=== PATIENT | male | born 2000 | race African-American/Black ===

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

== ENCOUNTER 2020-02-06 00:32 | Emergency (ER) | payer BC, SELFPAY ==
[2019-11-01 00:59] VITALS: BMI 23.3
[2020-02-06] VITALS (12 sets, daily range): BP systolic 116–148; BP diastolic 69–78; PULSE 50–88; RESP 15–18; TEMP 36.4; O2SAT 95–99; BMI 23.7
--- NOTE | 2020-02-06 00:36 | ED.VIS.GEN ---
History of Present Illness Chief Complaint: Suicidal Narrative: Patient called the police to bring him to the hospital he apparently wanted to kill himself and there are 2 other witnesses to confirm this per police department. He is however under quite a bit of alcohol, he claims at least 12 beers tonight. While he is in the emergency department he is denying any suicidal ideation. Initially he was somewhat directable but he was slurring his speech and kept wanting to get up and leave. Past Medical History - Allergies and Home Meds Allergies/Adverse Reactions: Allergies shrimp Adverse Reaction (Verified 10/30/19 22:20) Other Primary Care Physician: Care Physician,No Primary [Primary Care Provider] - Past Medical History: None Smoking Status: Unknown if ever smoked Review of Systems All systems negative except as indicated - He gives me a reasonable review of systems I am not sure that I can trust all of them however this is what he tells me under the state of intoxication. General: Denies: Fever Eyes: Denies: Visual changes - bilaterally Cardiovascular: Denies: Chest pain Respiratory: Denies: Dyspnea Gastrointestinal: Denies: Abdominal pain, Vomiting Musculoskeletal: Denies: Myalgias, Arthralgias Skin: Denies: Rash Neurological: Denies: Headache, Weakness Psych: Reports: Depression. Denies: Anxiety, Suicidal thoughts, Suicidal ideations - He is denying current suicidal thoughts however these are documented per Police Department pink slip Allergy: Denies: Swelling of the tongue Physical Exam General: Well nourished, - - He allows me a full physical exam Head: Normocephalic Eyes: Perrl, EOMI ENT: Moist mucous membranes Cardiovascular: Regular rate, Regular rhythm Respiratory: No distress Abdomen: Soft, Nontender Back: Nontender, Normal Inspection Extremities: Nontender, No edema Skin: Normal color Neurological: Alert, Oriented x3, - - Slight slurring of speech, slightly ataxic gait Psychological: - - Difficult exam secondary to intoxication however he has a mildly depressed affect although at times he is verbally aggressive but not physically aggressive. Diagnostic/Tx/Re-eval - Medical Decision Making Patient otherwise has an unremarkable work-up, when he is sober he will be assessed by psychiatry liaison. He will be turned over to the oncoming ED physician, he did require Geodon in the emergency department and now he is significantly improved. ED Disposition - Plan for ED Patient: Disposition: Acute Care Hospital [facility] Diagnosis: Depression, Alcohol intoxication Referrals: Care Physician,No Primary [Primary Care Provider] -
[2020-02-06] MEDS: Ziprasidone IM 20 MG/ML VIAL IM (01:00)
[2020-02-06 01:04] LABS: Absolute Neutrophil Count 1.4 X10^3/uL (2.0-7.7); Basophil# 0.02 X10^3/uL; Basophil% 0.3 % (0-1); Eosinophil# 0.14 X10^3/uL; Eosinophils% 2.4 % (0-5); Hematocrit 42.8 % (40-54); Hemoglobin 13.7 g/dL (13.0-16.5); Lymphocyte % 64.3 % (19-41); Mean Corpuscular Hgb 29.3 pg (27.0-32.0); Mean Corpuscular Volume 91.5 fL (80-94); Mean Platelet Vol. 8.9 fl (6.2-12.0); Monocyte# 0.44 X10^3/uL; Monocyte% 7.7 % (0-10); NRBC Flagged by Analyzer 0 % (0-5); Neutrophil # 1.44 X10^3/uL (2.7-7.7); Neutrophil % 25.1 % (47-70); Platelet Count 186 K/mm3 (150-450); RBC Distribution Width CV 12.8 % (11.6-14.6); RBC Distribution Width SD 42.1 fl (35.1-43.9); Red Blood Count 4.68 M/mm3 (4.6-6.2); White Blood Count 5.8 K/mm3 (4.4-11.0)
[2020-02-06 01:21] LABS: Anion Gap 5 (5-15); BUN 12 mg/dL (7-18); BUN/Creat Ratio 10.4 RATIO (10-20); Calcium,Total 8.7 mg/dL (8.5-10.1); Chloride 106 mmol/L (98-107); Creatinine, Serum 1.15 mg/dL (0.70-1.30); EST Glomerular Filtration Rate 87 mL/min (>60); Est Glom Filt Rate - Afr Amer 105 mL/min (>60); Estimated Creatinine Clearance 103.32 ml/min; Glucose 102 mg/dL (74-106); Potassium 3.5 mmol/L (3.5-5.1); Sodium Level 140 mmol/L (136-145)
--- NOTE | 2020-02-06 07:38 | NURSING ---
FAXED CHART TO [facility]
[2020-02-06 07:50] LABS: Probe Check PASS; Specimen Processing Control PASS
--- NOTE | 2020-02-06 08:10 | NURSING ---
[facility], CRISIS, TALKING TO PATIENT
--- NOTE | 2020-02-06 08:24 | EKG12_ITS ---
Test Reason : [facility] Blood Pressure : / mmHG Vent. Rate : 051 BPM Atrial Rate : 051 BPM P-R Int : 162 ms QRS Dur : 098 ms QT Int : 434 ms P-R-T Axes : 042 078 059 degrees QTc Int : 400 ms Sinus bradycardia with sinus arrhythmia Early repolarization Otherwise normal ECG Confirmed by MARK FLORES, DENISE ([id number]), associate entertainment editor SINDHU NICHOLS ([id number]) on 02/08/2020 1:12:38 PM Referred By: LUTHER Confirmed By:DENISE FLORES MD
[2020-02-06 08:49] LABS: AST(SGOT) 20 U/L (15-37); Alanine Aminotransfer ALT/SGPT 36 U/L (16-61); Albumin, Serum 4.3 g/dL (3.2-5.0); Alkaline Phosphatase 105 U/L (45-117); Bilirubin, Direct 0.14 mg/dL (0.00-0.30); Globulin 3.5 g/dL (2.2-4.2); Protein, Total 7.8 g/dL (6.4-8.2)
--- NOTE | 2020-02-06 09:54 | NURSING ---
FAXED LABS TO [facility], E[facility]K
[2020-02-06 09:57] LABS: Amphetamine Urine VISTA POSITIVE (<1000 ng/mL); Barbiturate Urine VISTA NEGATIVE (< 200 ng/mL); Benzodiazepine Urine VISTA NEGATIVE (< 200 ng/mL); Cocaine Urine VISTA NEGATIVE (< 300 ng/mL); Ecstacy Urine VISTA NEGATIVE (< 500 ng/mL); Methadone Urine VISTA NEGATIVE (< 300 ng/mL); PCP Urine VISTA NEGATIVE (< 25 ng/mL); THC Urine VISTA POSITIVE (< 50 ng/mL); Vista UDS pH Range 5
--- NOTE | 2020-02-06 11:45 | CM.ED ---
SOCIAL WORK Spoke with Nisha from Crisis. Plan is for inpatient psych hospitalization. Per Nisha, referrals have been faxed to [place] and [place] as patient is indigent. Awaiting acceptance at this time. Staff richard. Noe Bailey MSW, FISH CULTURIST
--- NOTE | 2020-02-06 17:49 | ED.RN ---
transport at bedside, report given. denies questions.
== END 2020-02-06 17:52 | disposition short-term general hospital (02) ==
PROVIDERS: Emergency Medicine; Emergency Provider Emergency Medicine
DX: F32.9 Major depressive disorder, single episode, unspecified (principal); R45.851 Suicidal ideations; F10.129 Alcohol abuse with intoxication, unspecified
CPT/HCPCS: 80048; 80076; 80307; 80320; 85025; 87635; 93005; 94799; 96372; 99284; G0480; J3486; U0003

== ENCOUNTER 2020-08-05 12:58 | Emergency (ER) | payer MEDICAID, SELFPAY ==
[2020-02-06 00:34] VITALS: BMI 23.7
[2020-08-05 12:59] VITALS: BP 145/68; PULSE 67; RESP 18; TEMP 35.9; O2SAT 100; BMI 24.0
--- NOTE | 2020-08-05 13:17 | CT_ITS ---
STUDY: CT ABDOMEN AND PELVIS WITH CONTRAST REASON FOR EXAM: Male, 20 years old. LLQ PAIN WITH UNDESCENDED LEFT TESTICLE. RADIATION DOSAGE (If Supplied By Facility): CTDIvol = ( 6.30 ) mGy, DLP = ( 348.43 ) mGycm TECHNIQUE: Transaxial images were obtained from the dome of the diaphragm to the symphysis pubis without oral contrast. IV 75ML ISOVUE 300 was administered. Sagittal and coronal images were reconstructed. Individualized dose optimization techniques were used for this CT. COMPARISON: None. FINDINGS: The visualized lung bases are unremarkable. The visualized portions of the heart are within normal limits. Normal liver. Normal gallbladder and extrahepatic biliary system. Normal spleen. Normal pancreas. Normal bilateral adrenal glands. Normal right kidney. Normal left kidney. Normal visualized stomach. Normal small intestine. Normal colon. The appendix is visualized and appears normal. Normal abdominal aorta. Normal inferior vena cava. Normal retroperitoneum. Normal urinary bladder. There is evidence of an undescended left testicle. It is within the left inguinal canal. Normal abdominal wall. Normal osseous structures. CT/Abdomen/Pelvis W IV Cont ONLY IMPRESSION: Undescended left testicle. The testicle is in the left inguinal canal. Electronically Signed: Chris Kamara MD at 14:41 EST , Service support ,
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
[2020-08-05] MEDS: Morphine 4 MG/ML Syringe IV (13:30)
[2020-08-05] MEDS: 0.9% Normal Saline 1,000 ML 1000 ML IV (13:31)
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
[2020-08-05 13:38] LABS: Absolute Lymphocyte Count 1.56 X10^3/uL (0.83-4.51); Absolute Neutrophil Count 1.1 X10^3/uL (2.0-7.7); Basophil# 0.01 X10^3/uL; Basophil% 0.3 % (0-1); Eosinophil# 0.07 X10^3/uL; Eosinophils% 2.3 % (0-5); Hematocrit 45.1 % (40-54); Hemoglobin 14.8 g/dL (13.0-16.5); Lymphocyte # 1.56 X10^3/ul (4.0); Lymphocyte % 50.6 % (19-41); Mean Corp Hgb Conc 32.8 g/dL (32-36); Mean Corpuscular Volume 88.3 fL (80-94); Mean Platelet Vol. 8.9 fl (6.2-12.0); Monocyte% 9.7 % (0-10); NRBC Flagged by Analyzer 0 % (0-5); Neutrophil # 1.14 X10^3/uL (2.7-7.7); Neutrophil % 37.1 % (47-70); Platelet Count 235 K/mm3 (150-450); RBC Distribution Width CV 11.8 % (11.6-14.6); RBC Distribution Width SD 37.9 fl (35.1-43.9); Red Blood Count 5.11 M/mm3 (4.6-6.2); White Blood Count 3.1 K/mm3 (4.4-11.0)
[2020-08-05 13:46] LABS: ALB/GLOB Ratio 1.2 RATIO (0.9-2.4); AST(SGOT) 24 U/L (15-37); Alanine Aminotransfer ALT/SGPT 37 U/L (16-61); Albumin, Serum 3.9 g/dL (3.2-5.0); Alkaline Phosphatase 116 U/L (45-117); Anion Gap 4 (5-15); BUN 15 mg/dL (7-18); BUN/Creat Ratio 12.7 RATIO (10-20); Calcium,Total 8.6 mg/dL (8.5-10.1); Chloride 107 mmol/L (98-107); Creatinine, Serum 1.18 mg/dL (0.70-1.30); EST Glomerular Filtration Rate 84 mL/min (>60); Est Glom Filt Rate - Afr Amer 101 mL/min (>60); Estimated Creatinine Clearance 99.86 ml/min; Globulin 3.3 g/dL (2.2-4.2); Glucose 78 mg/dL (74-106); Lipase 88 U/L (73-393); Potassium 3.7 mmol/L (3.5-5.1); Protein, Total 7.2 g/dL (6.4-8.2); Sodium Level 140 mmol/L (136-145)
== END 2020-08-05 15:09 | disposition home or self-care (01) ==
PROVIDERS: Emergency Provider Emergency Medicine
DX: R10.12 Left upper quadrant pain (principal); Q53.10 Unspecified undescended testicle, unilateral; Z72.0 Tobacco use
CPT/HCPCS: 74177; 80053; 83690; 85025; 96361; 96374; 99283; Q9967; A4216

== ENCOUNTER 2020-08-21 22:04 | Emergency (ER) | payer MEDICAID, SELFPAY ==
[2020-08-21 22:06] VITALS: BP 157/80; PULSE 100; RESP 18; TEMP 36.7; O2SAT 99; BMI 21.5
--- NOTE | 2020-08-21 22:32 | ED.DCSUM_ITS ---
- ER Visit Summary Date of Service: 08/21/20 Chief Complaint: Depression, suicidal thoughts History of Present Illness: The patient is a 20 M who presents with depression as well as suicidal thoughts. He had these thoughts this morning. He got into an argument with his significant other. He states that he has been crying all day. He admits to trust and abandonment issues. He states he had thoughts of wanting to harm the significant other as well as himself. He had no specific plan for either of these. He has a history of psychiatric admissions. He tells me he has no medical problems and is on no medications currently. Physical Examination: Vital signs reviewed. HEENT exam unremarkable. Heart is regular rate and rhythm without murmurs. Lungs are clear to auscultation. Abdomen is soft and nontender. Extremities reveal no edema. Skin exam normal. Neurologic exam normal. The patient does appear depressed. He is tearful on examination. He does admit to suicidal thoughts. Test Results: Laboratory studies are unremarkable aside for potassium of 3.2 and toxicology screen which shows cannabis. Glucose 111 Emergency Department Course and Treatment: The patient was given hydroxyzine. Patient was evaluated by crisis and they feel he needs inpatient psychiatric hospitalization. Patient was accepted at [facility] for psychiatry by Dr. Stacy Treatment Plan: [] Disposition: Transfer Impression: Suicidal ideation This note was generated with Akdemia dictation software. It may contain incorrect words, spelling, and punctuation that were not noted in review of the chart prior to signing ED Disposition - Plan for ED Patient: Referrals: Care Physician,No Primary [Primary Care Provider] -
--- NOTE | 2020-08-21 22:36 | ED.RN ---
PT POCKET KNIFE GIVEN TO SECURITY.
[2020-08-21 22:41] LABS: Absolute Lymphocyte Count 1.29 X10^3/uL (0.83-4.51); Absolute Neutrophil Count 5.9 X10^3/uL (2.0-7.7); Basophil# 0.01 X10^3/uL; Basophil% 0.1 % (0-1); Eosinophil# 0.01 X10^3/uL; Eosinophils% 0.1 % (0-5); Hemoglobin 15.3 g/dL (13.0-16.5); Lymphocyte # 1.29 X10^3/ul (4.0); Lymphocyte % 16.8 % (19-41); Mean Corp Hgb Conc 32.6 g/dL (32-36); Mean Corpuscular Hgb 28.9 pg (27.0-32.0); Mean Corpuscular Volume 88.7 fL (80-94); Mean Platelet Vol. 8.7 fl (6.2-12.0); Monocyte# 0.41 X10^3/uL; Monocyte% 5.3 % (0-10); NRBC Flagged by Analyzer 0 % (0-5); Neutrophil # 5.94 X10^3/uL (2.7-7.7); Neutrophil % 77.4 % (47-70); Platelet Count 231 K/mm3 (150-450); RBC Distribution Width CV 11.7 % (11.6-14.6); RBC Distribution Width SD 38.3 fl (35.1-43.9); White Blood Count 7.7 K/mm3 (4.4-11.0)
[2020-08-21 22:53] LABS: Anion Gap 8 (5-15); BUN 11 mg/dL (7-18); BUN/Creat Ratio 9.2 RATIO (10-20); Calcium,Total 9.3 mg/dL (8.5-10.1); Chloride 104 mmol/L (98-107); Creatinine, Serum 1.19 mg/dL (0.70-1.30); EST Glomerular Filtration Rate 83 mL/min (>60); Est Glom Filt Rate - Afr Amer 100 mL/min (>60); Estimated Creatinine Clearance 95.29 ml/min; Glucose 111 mg/dL (74-106); Potassium 3.2 mmol/L (3.5-5.1); Sodium Level 139 mmol/L (136-145)
[2020-08-21] MEDS: hydrOXYzine PAM 25 MG Capsule 50 MG PO (22:53)
[2020-08-21 22:58] LABS: Amphetamine Urine VISTA NEGATIVE (<1000 ng/mL); Barbiturate Urine VISTA NEGATIVE (< 200 ng/mL); Benzodiazepine Urine VISTA NEGATIVE (< 200 ng/mL); Cocaine Urine VISTA NEGATIVE (< 300 ng/mL); Ecstacy Urine VISTA NEGATIVE (< 500 ng/mL); Methadone Urine VISTA NEGATIVE (< 300 ng/mL); PCP Urine VISTA NEGATIVE (< 25 ng/mL); THC Urine VISTA POSITIVE (< 50 ng/mL); Vista UDS pH Range 6
[2020-08-21 23:13] LABS: Alcohol, Blood (Medical)-Serum < 3.0 mg/dL
[2020-08-21 23:18] VITALS: RESP 15
--- NOTE | 2020-08-21 23:24 | ED.RN ---
CALLED CRISIS ABOUT THE PATIENT AND FAXED OVER PAPERWORK TO CRISIS.
[2020-08-22 00:18] VITALS: RESP 16
[2020-08-22 01:09] VITALS: RESP 18
[2020-08-22 02:08] VITALS: BP 142/60; PULSE 80; RESP 16; O2SAT 97
--- NOTE | 2020-08-22 02:48 | ED.RN ---
FAXED OVER PATIENTS RESULTS FOR COVID
[2020-08-22 03:15] VITALS: RESP 18
== END 2020-08-22 04:18 ==
LOC: ED 22:43
PROVIDERS: Emergency Provider Emergency Medicine
DX: R45.851 Suicidal ideations (principal); F32.9 Major depressive disorder, single episode, unspecified; F12.90 Cannabis use, unspecified, uncomplicated; Z72.0 Tobacco use
CPT/HCPCS: 36415; 80048; 80307; 82077; 85025; 87426; 99285

== ENCOUNTER → 2020-09-02 11:26 | Outpatient (CLI) | payer MEDICAID, SELFPAY ==
[2020-08-21 22:06] VITALS: BMI 21.5
[2020-09-02 15:13] LABS: Absolute Lymphocyte Count 2.19 X10^3/uL (0.83-4.51); Absolute Neutrophil Count 0.9 X10^3/uL (2.0-7.7); Basophil# 0.02 X10^3/uL; Basophil% 0.6 % (0-1); Eosinophil# 0.07 X10^3/uL; Hematocrit 43.5 % (40-54); Hemoglobin 14.2 g/dL (13.0-16.5); Lymphocyte # 2.19 X10^3/ul (4.0); Lymphocyte % 63.1 % (19-41); Mean Corp Hgb Conc 32.6 g/dL (32-36); Mean Corpuscular Volume 88.8 fL (80-94); Mean Platelet Vol. 9.8 fl (6.2-12.0); Monocyte# 0.31 X10^3/uL; Monocyte% 8.9 % (0-10); NRBC Flagged by Analyzer 0 % (0-5); Neutrophil # 0.88 X10^3/uL (2.7-7.7); Neutrophil % 25.4 % (47-70); POSITIVE DIFFERENTIAL YES; Platelet Count 251 K/mm3 (150-450); RBC Distribution Width CV 11.7 % (11.6-14.6); RBC Distribution Width SD 38.1 fl (35.1-43.9); White Blood Count 3.5 K/mm3 (4.4-11.0)
[2020-09-02 15:17] LABS: Differential Indicated SCAN CRITERIA MET
[2020-09-02 15:37] LABS: ALB/GLOB Ratio 1.2 RATIO (0.9-2.4); AST(SGOT) 18 U/L (15-37); Alanine Aminotransfer ALT/SGPT 39 U/L (16-61); Alkaline Phosphatase 106 U/L (45-117); Anion Gap 4 (5-15); BUN 11 mg/dL (7-18); BUN/Creat Ratio 10.1 RATIO (10-20); Calcium,Total 8.7 mg/dL (8.5-10.1); Chloride 105 mmol/L (98-107); Creatinine, Serum 1.09 mg/dL (0.70-1.30); EST Glomerular Filtration Rate 92 mL/min (>60); Est Glom Filt Rate - Afr Amer 111 mL/min (>60); Globulin 3.4 g/dL (2.2-4.2); Glucose 76 mg/dL (74-106); Potassium 3.6 mmol/L (3.5-5.1); Protein, Total 7.4 g/dL (6.4-8.2); Sodium Level 138 mmol/L (136-145); Thyroid Stim Hormone (TSH) 1.21 uIU/mL (0.358-3.74)
[2020-09-02 15:41] LABS: Differential Comment SCANNED
[2020-09-02 16:06] LABS: HIV - WCH Non-Reactive (Nonreactive); Hepatitis B Surface Antigen Non-Reactive (Nonreactive); Hepatitis C Antibody Non-Reactive (Nonreactive)
[2020-09-02 16:20] LABS: Hemoglobin A1c 4.7 % (3.8-5.6)
[2020-09-05 16:08] LABS: Hepatitis B Core Ab Total Negative (Negative); Hepatitis Be Ab Negative (Negative)
[2020-09-05 18:04] LABS: Hepatitis B Core AB IgM Negative (Negative)
== END ==
PROVIDERS: PCP Family Medicine; Referring Provider Family Medicine; Visit Provider Family Medicine
DX: F32.9 Major depressive disorder, single episode, unspecified (principal); F19.10 Other psychoactive substance abuse, uncomplicated; R73.9 Hyperglycemia, unspecified
CPT/HCPCS: 36415; 80053; 83036; 84443; 85025; 86703; 86704; 86705; 86707; 86803; 87340

== ENCOUNTER 2021-02-14 20:50 | Emergency (ER) | payer BC, MEDICAID, SELFPAY ==
[2021-02-14 20:51] VITALS: BP 137/63; PULSE 96; RESP 18; TEMP 36.6; O2SAT 99; BMI 23.6
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
[2021-02-14] MEDS: Naproxen 500 MG Tablet PO (21:15)
--- NOTE | 2021-02-14 21:15 | RAD_ITS ---
HISTORY: pain -- right thumb EXAMINATION/TECHNIQUE: XR Fingers Min 2 Views: COMPARISON: None FINDINGS: BONES/JOINTS: No acute fracture or dislocation. Preservation of the joint spaces. SOFT TISSUES: No soft tissue swelling or gas. No radiopaque foreign body. RAD/Finger(s) Min 2 Views IMPRESSION: No acute bony abnormality. at 2224 Reported and signed by: Nuno Lopez MD Electronically Signed: Nuno Lopez MD at 22:23 EDT Tel , Service support ,
== END 2021-02-14 22:08 | disposition home or self-care (01) ==
PROVIDERS: Emergency Provider Emergency Medicine; PCP Family Medicine
DX: S63.601A Unspecified sprain of right thumb, initial encounter (principal); S50.812A Abrasion of left forearm, initial encounter; S70.212A Abrasion, left hip, initial encounter; V19.9XXA Pedal cyclist (driver) (passenger) injured in unspecified traffic accident, initial encounter; Y93.55 Activity, bike riding; Y92.9 Unspecified place or not applicable; F17.210 Nicotine dependence, cigarettes, uncomplicated
CPT/HCPCS: 73140; 99283

== ENCOUNTER 2021-03-25 17:53 | Emergency (ER) | payer BC, MEDICAID, SELFPAY ==
[2021-03-25 17:54] VITALS: BP 138/76; PULSE 101; RESP 14; TEMP 36.8; O2SAT 100; BMI 26.8
[2021-03-25 19:00] VITALS: RESP 16
[2021-03-25 20:24] LABS: Absolute Lymphocyte Count 1.85 X10^3/uL (0.83-4.51); Absolute Neutrophil Count 2.1 X10^3/uL (2.0-7.7); Basophil# 0.02 X10^3/uL; Basophil% 0.5 % (0-1); Eosinophil# 0.03 X10^3/uL; Eosinophils% 0.7 % (0-5); Hematocrit 42.9 % (40-54); Hemoglobin 13.8 g/dL (13.0-16.5); Lymphocyte # 1.85 X10^3/ul (0.83-4.51); Lymphocyte % 42.5 % (19-41); Mean Corp Hgb Conc 32.2 g/dL (32-36); Mean Corpuscular Hgb 28.6 pg (27.0-32.0); Monocyte# 0.33 X10^3/uL; Monocyte% 7.6 % (0-10); NRBC Flagged by Analyzer 0 % (0-5); Neutrophil # 2.11 X10^3/uL (2.7-7.7); Neutrophil % 48.5 % (47-70); Platelet Count 227 K/mm3 (150-450); RBC Distribution Width CV 12.4 % (11.6-14.6); RBC Distribution Width SD 40.7 fl (35.1-43.9); Red Blood Count 4.82 M/mm3 (4.6-6.2); White Blood Count 4.4 K/mm3 (4.4-11.0)
[2021-03-25 20:35] LABS: Anion Gap 6 (5-15); BUN 13 mg/dL (7-18); BUN/Creat Ratio 11.1 RATIO (10-20); Calcium,Total 9.1 mg/dL (8.5-10.1); Chloride 107 mmol/L (98-107); Creatinine, Serum 1.17 mg/dL (0.70-1.30); EST Glomerular Filtration Rate 84 mL/min (>60); Est Glom Filt Rate - Afr Amer 102 mL/min (>60); Estimated Creatinine Clearance 97.44 ml/min; Glucose 70 mg/dL (74-106); Sodium Level 141 mmol/L (136-145)
[2021-03-25 20:50] VITALS: RESP 18
[2021-03-25 20:56] LABS: Alcohol, Blood (Medical)-Serum < 3.0 mg/dL
[2021-03-25 21:00] VITALS: RESP 16
[2021-03-25 21:07] LABS: Amphetamine Urine VISTA NEGATIVE (<1000 ng/mL); Barbiturate Urine VISTA NEGATIVE (< 200 ng/mL); Benzodiazepine Urine VISTA NEGATIVE (< 200 ng/mL); Cocaine Urine VISTA NEGATIVE (< 300 ng/mL); Ecstacy Urine VISTA NEGATIVE (< 500 ng/mL); Methadone Urine VISTA NEGATIVE (< 300 ng/mL); PCP Urine VISTA NEGATIVE (< 25 ng/mL); THC Urine VISTA POSITIVE (< 50 ng/mL); Vista UDS pH Range 5
--- NOTE | 2021-03-25 21:21 | NURSING ---
CALLED CRISIS FOR PATIENT
--- NOTE | 2021-03-25 21:24 | NURSING ---
SHIRA, ERIK, CALLED. SHE WILL BE HERE 15 MIN
--- NOTE | 2021-03-25 21:45 | NURSING ---
ERIK SILVA, IS HERE
--- NOTE | 2021-03-25 21:45 | NURSING ---
ERIK SILVA, IS IN ER
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
--- NOTE | 2021-03-25 21:58 | CM.ED ---
BARNEY Note BARNEY called Shanda at [facility]. Shanda indicated they have beds. BARNEY faxed referral to [facility]. Plan: Admit to psych. Angella CARLISLE
[2021-03-25 22:00] VITALS: BP 112/74; PULSE 71; RESP 18; O2SAT 99
--- NOTE | 2021-03-25 22:04 | EKG12_ITS ---
Test Reason : [facility] Blood Pressure : / mmHG Vent. Rate : 052 BPM Atrial Rate : 052 BPM P-R Int : 150 ms QRS Dur : 094 ms QT Int : 430 ms P-R-T Axes : 042 079 052 degrees QTc Int : 399 ms Sinus bradycardia Otherwise normal ECG Confirmed by MARK FLORES, DENISE ([id number]), state editor JEANETTE PEREZ ([id number]) on 03/27/2021 1:36:24 PM Referred By: AMANDA Confirmed By:DENISE FLORES MD
[2021-03-25 23:00] VITALS: RESP 16
--- NOTE | 2021-03-25 23:09 | EDS_ITS ---
HPI HPI - Psych History of Present Illness Chief Complaint: Mental Health Informant: patient Narrative Narrative: Patient has a history of schizophrenia. He has been on medications but does not remember what they are. He has been off for at least 2 months. He has been at a [facility] rehab facility. He has a history of polypharmacy abuse but states he really has not used drugs except occasional alcohol and marijuana in the last 7 months. He is hearing voices. He says what bothers him this time is that the voices are telling him to hurt people and he does not want to. He is not suicidal. He is eating and drinking but his sleep is poor. He states he needs help and needs to be back on his medications. He has no physical complaints. [facility] Medical History Suicidal behavior Home Medications NK 08/21/20 [History Last Taken Unknown] Allergy/AdvReac Type Severity Reaction Status Date / Time Fish Containing Products Allergy Other Verified 03/25/21 17:54 Social History Smoking Status: Current every day smoker tobacco type: cigarettes ROS ROS ED Constitutional Constitutional ED: Denies chills or fever(s) Eyes Eyes: Denies blurry vision ENT ENT ED: Denies ear pain or rhinorrhea Cardiovascular Cardiovascular: Denies chest pain or palpitations Respiratory/Chest Respiratory/Chest: Denies cough or sputum Gastrointestinal Gastrointestinal: Denies diarrhea, nausea or vomiting Genitourinary Genitourinary ED: Denies dysuria or hematuria Musculoskeletal Musculoskeletal: Denies myalgias Integumentary Denies rash Neurologic Neurologic: Denies headache(s) or paresthesias Psychiatric Psychiatric: Reports other Details: See history of present illness. Endocrine Endocrinology: Denies polydipsia or polyuria Hematologic/Lymphatic Hematologic/Lymphatic: Denies easy bleeding or easy bruising Allergic/Immunologic Allergic/Immunologic ED: Denies urticaria EXAM Physical Exam Const Vital Signs: 03/26/21 01:00 03/26/21 02:00 03/26/21 03:00 Temperature Temperature Source Pulse Rate 71 Respiratory Rate 16 14 16 Blood Pressure 115/69 Blood Pressure Mean 84 Pulse Ox 99 Oxygen Delivery Method 03/26/21 04:00 03/26/21 05:00 03/26/21 06:39 Temperature 97.5 F L Temperature Source Temporal Pulse Rate 52 L Respiratory Rate 14 16 16 Blood Pressure 114/64 Blood Pressure Mean 80 Pulse Ox 99 Oxygen Delivery Method Room Air 03/26/21 08:20 03/26/21 09:31 Temperature Temperature Source Pulse Rate Respiratory Rate 16 14 Blood Pressure Blood Pressure Mean Pulse Ox Oxygen Delivery Method Positive well nourished and well developed General Appearance ED: well developed and NAD HEENT Reports moist mucous membranes normocephalic and atraumatic Eyes General Eye ED: Negative for pale conjunctiva or scleral icterus Resp normal respiratory effort and clear to auscultation bilaterally Cardio Rate: regular rate Rhythm: regular rhythm GI non-tender and non-distended Palpation: soft Back/Spine no CVA tenderness Extremity General Extremety ED: Negative for edema General Extremity: Negative for edema Neuro oriented x3 Sensorium / Orientation: alert Psych Psych Narrative: Patient is alert and oriented x3. He actually gives a good history. He does seem mildly internally stimulated. He seems just mildly paranoid but is very tolerant of exam and discussions. Skin Rashes: no rashes MDM MDM MDM Narrative Medical decision making narrative: Talk screen is consistent with his history. Alcohol is negative. Electrolytes are unremarkable. CBC is unremarkable. Covid is negative. Patient is medically cleared for psychiatric evaluation and admission if needed. Plan will be transfer to appropriate facility. Lab Data Attestation: I reviewed the patient's lab results. Labs: Laboratory Results - last 24 hr 03/25/21 03/25/21 03/25/21 20:16 20:16 20:16 WBC 4.4 RBC 4.82 Hgb 13.8 Hct 42.9 MCV 89.0 MCH 28.6 MCHC 32.2 RDW Std Deviation 40.7 RDW Coeff of Elijah 12.4 Plt Count 227 MPV 9.0 Immature Gran % (Auto) 0.200 Neut % (Auto) 48.5 Lymph % (Auto) 42.5 H Haywood % (Auto) 7.6 Eos % (Auto) 0.7 Baso % (Auto) 0.5 Absolute Neuts (auto) 2.1 Absolute Lymphs (auto) 1.85 Nucleated RBC % 0 Sodium 141 Potassium 3.0 L Chloride 107 Carbon Dioxide 28.0 Anion Gap 6 BUN 13 Creatinine 1.17 Estim Creat Clear Calc 97.44 Est GFR (MDRD) Af Amer 102 Est GFR (MDRD) Non-Af 84 BUN/Creatinine Ratio 11.1 Glucose 70 L Calcium 9.1 Urine Opiates Screen Urine Methadone Screen Ur Barbiturates Screen Ur Phencyclidine Scrn Ur Amphetamines Screen U Methamphetamin-MDMA U Benzodiazepines Scrn Urine Cocaine Screen U Cannabinoids Screen Ur Drug Screen Comment Ethyl Alcohol < 3.0 03/25/21 20:45 WBC RBC Hgb Hct MCV MCH MCHC RDW Std Deviation RDW Coeff of Elijah Plt Count MPV Immature Gran % (Auto) Neut % (Auto) Lymph % (Auto) Haywood % (Auto) Eos % (Auto) Baso % (Auto) Absolute Neuts (auto) Absolute Lymphs (auto) Nucleated RBC % Sodium Potassium Chloride Carbon Dioxide Anion Gap BUN Creatinine Estim Creat Clear Calc Est GFR (MDRD) Af Amer Est GFR (MDRD) Non-Af BUN/Creatinine Ratio Glucose Calcium Urine Opiates Screen NEGATIVE Urine Methadone Screen NEGATIVE Ur Barbiturates Screen NEGATIVE Ur Phencyclidine Scrn NEGATIVE Ur Amphetamines Screen NEGATIVE U Methamphetamin-MDMA NEGATIVE U Benzodiazepines Scrn NEGATIVE Urine Cocaine Screen NEGATIVE U Cannabinoids Screen POSITIVE H Ur Drug Screen Comment Ethyl Alcohol Discharge Plan Triage Chief Complaint: Mental Health ED Provider: Bakari Norris Dx/Rx/DC Orders Clinical Impression: Acute exacerbation of chronic schizophrenia, Auditory hallucination Prescriptions: No Action NK RF: 0 Primary Care Provider: Susana Ho Referrals: Susana Ho MD [Primary Care Provider] - Disposition Disposition: Psychiatric Hospital or Unit Discharge Location: [facility] Discharge Date/Time: 03/26/21 10:16
--- NOTE | 2021-03-25 23:23 | CM.ED ---
BARNEY Note BARNEY called Shanda at [facility]. She indicated she has other cases to review and no determination has been made. 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 Plan: Inpatient psych Angella CARLISLE
[2021-03-26] VITALS (9 sets, daily range): BP systolic 114–115; BP diastolic 64–69; PULSE 52–71; RESP 14–18; TEMP 36.4; O2SAT 99
[2021-03-26] MEDS: LORazepam 1 MG Tablet PO (01:22)
--- NOTE | 2021-03-26 04:28 | ED.RN ---
GENERATIONS DECLINED THE PATIENT
== END 2021-03-26 10:16 ==
PROVIDERS: Emergency Provider Emergency Medicine; PCP Family Medicine
DX: F20.9 Schizophrenia, unspecified (principal); F12.90 Cannabis use, unspecified, uncomplicated; F17.210 Nicotine dependence, cigarettes, uncomplicated
CPT/HCPCS: 80048; 80307; 82077; 85025; 87426; 93005; 99283

== ENCOUNTER 2021-03-31 00:51 | Emergency (ER) | payer BC, MEDICAID, SELFPAY ==
[2021-03-31 00:52] VITALS: BP 117/105; PULSE 78; RESP 18; TEMP 36.6; O2SAT 98; BMI 22.9
[2021-03-31] MEDS: OLANZapine 5 MG/TAB TAB.RAPDIS PO (01:22)
--- NOTE | 2021-03-31 01:25 | EDS_ITS ---
HPI History of Present Illness Chief Complaint: Med Refill Informant: patient Onset/Context/Timing Onset: Today Current Severity: Mild Maximum Severity: Mild Narrative Narrative: 20-year-old male has a history of schizophrenia. Recently was hospitalized in a psychiatric facility. He has his prescriptions but is not getting them filled until later today. He was just hoping to get his Zyprexa dose. He denies being homicidal or suicidal. Prior similar symptoms: Yes Recent Illness/Hospitalization: Yes PFSH PFSH Medical History Suicidal behavior Home Medications NK 08/21/20 [History Last Taken Unknown] Allergy/AdvReac Type Severity Reaction Status Date / Time Fish Containing Products Allergy Other Verified 03/25/21 17:54 Social History Smoking Status: Current every day smoker tobacco type: cigarettes ROS ROS ED ROS Narrative Denies recent illness. Review of Systems ROS Unobtainable: Denies due to encephalopathy Constitutional Constitutional ED: Denies chills or fever(s) Eyes Eyes: Denies change in vision ENT ENT ED: Denies ear pain or sore throat Cardiovascular Cardiovascular: Denies chest pain Respiratory/Chest Respiratory/Chest: Denies cough or dyspnea Gastrointestinal Gastrointestinal: Denies abdominal pain, nausea or vomiting Genitourinary Genitourinary ED: Denies dysuria or hematuria Musculoskeletal Musculoskeletal: Denies myalgias Integumentary Denies rash Neurologic Neurologic: Denies headache(s) Psychiatric Psychiatric: Reports anxiety; Denies depression Endocrine Endocrinology: Denies polyuria Allergic/Immunologic Allergic/Immunologic ED: Denies urticaria EXAM Physical Exam Narrative Exam Narrative: Well-appearing 20-year-old. Vital signs stable afebrile. No distress. Mildly anxious. Exam otherwise normal. He makes good eye contact. He is cooperative. He is calm and interactive. Const Vital Signs: 03/31/21 00:52 Temperature 98 F Temperature Source Temporal Pulse Rate 78 Respiratory Rate 18 Blood Pressure 117/105 H Blood Pressure Mean 109 Pulse Ox 98 Oxygen Delivery Method Room Air Positive well nourished and well developed; Negative for obese, cachectic, contractures or unkempt General Appearance ED: well developed and NAD; Negative for unkempt, cachectic or contractures Nutritional Appearance: Negative for cachectic or obese HEENT Reports moist mucous membranes Negative for trauma or tenderness Eyes PERRL and EOMs intact bilaterally Neck no lymphadenopathy, supple and no JVD General: Negative for tenderness Chest Wall inspection of chest normal and palpation of chest normal Resp normal respiratory effort and clear to auscultation bilaterally Cardio regular rate, regular rhythm, S1 normal heart sound, S2 normal heart sound and no murmurs GI normal to inspection, nondistended, normoactive bowel sounds, non-tender, non- distended and no masses Auscultation: normoactive bowel sounds Palpation: soft; Negative for tender, guarding or rebound tenderness present Back/Spine no CVA tenderness Extremity normal to inspection General Extremety ED: Negative for edema or tenderness General Extremity: Negative for edema Neuro oriented x3 and CN's II-XII intact bilaterally Sensorium / Orientation: alert; Negative for orientation impaired, lethargic or stuporous Motor Exam: strength 5/5 throughout; Negative for general weakness Psych mental status grossly normal Appearance: Negative for unkempt Attitude: No agitated Mood & Affect: anxious; Negative for depressed or tearful Skin no rashes or lesions noted and no wounds MDM MDM MDM Narrative Medical decision making narrative: Patient with a history of schizophrenia. Just needs a dose of his Zyprexa. He has a prescription so get filled tomorrow. Otherwise he is very stable. His exam is unremarkable. He can be discharged home. He is given a snack of something to eat and will be discharged. Discharge Plan Triage Chief Complaint: Med Refill ED Provider: Kev Copeland Dx/Rx/DC Orders Clinical Impression: Anxiety, Schizophrenia, chronic condition Instructions: Understanding Schizophrenia Prescriptions: No Action NK RF: 0 Primary Care Provider: Susana Ho Referrals: Susana Ho MD [Primary Care Provider] - As Needed Activity Restrictions/Additional Instructions: Get your prescriptions filled tomorrow. Follow-up with your primary care physician and psychiatrist as needed. Disposition Disposition: Home, Self Care
== END 2021-03-31 01:42 | disposition home or self-care (01) ==
PROVIDERS: Emergency Provider Emergency Medicine; PCP Family Medicine
DX: F20.9 Schizophrenia, unspecified (principal); F41.9 Anxiety disorder, unspecified; F17.210 Nicotine dependence, cigarettes, uncomplicated
CPT/HCPCS: 99282

== ENCOUNTER 2021-07-29 07:02 | Emergency (ER) | payer BC, MEDICAID, SELFPAY ==
[2021-07-29 07:03] VITALS: BP 130/74; PULSE 65; RESP 14; TEMP 36.6; O2SAT 100; BMI 23.3
[2021-07-29] MEDS: Fluorescein 1 MG STRIP 1 STRIP RIGHT EYE (07:25)
[2021-07-29] MEDS: Tetracaine 0.5% Ophthalmic Bottle 1 DRP RIGHT EYE (07:25)
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
[2021-07-29] MEDS: Erythromycin Base 1 OPTH.TUBE 1 APPLIC RIGHT EYE (07:49)
== END 2021-07-29 07:50 | disposition home or self-care (01) ==
LOC: ED 07:44
PROVIDERS: Emergency Provider Student in an Organized Health Care Education/Training Program; PCP Family Medicine; Visit Provider Student in an Organized Health Care Education/Training Program
DX: S05.01XA Injury of conjunctiva and corneal abrasion without foreign body, right eye, initial encounter (principal); F17.210 Nicotine dependence, cigarettes, uncomplicated; X58.XXXA Exposure to other specified factors, initial encounter
CPT/HCPCS: 99282

== ENCOUNTER 2021-08-07 15:58 | Emergency (ER) | payer BC, MEDICAID, SELFPAY ==
[2021-08-07 15:59] VITALS: BP 156/70; PULSE 69; RESP 14; TEMP 36.8; O2SAT 100; BMI 23.3
--- NOTE | 2021-08-07 17:34 | EX.ED.DYSGE1 ---
HPI History of Present Illness Chief Complaint: Chest Other Informant: patient Onset/Context/Timing Onset: Weeks (3 weeks) Context: Gradual Onset Timing: Waxes and wanes Narrative Narrative: Patient presents secondary to lump under her right nipple for the past 3 weeks. He states he feels like it is enlarging in size and has been painful. No erythema or skin changes. No drainage. PFSH PFSH Medical History Suicidal behavior Home Medications erythromycin 1 applic RIGHT EYE Q6H 5 Days #3.5 g 07/29/21 [Rx Last Taken Unknown] ketorolac 2 drp RIGHT EYE Q8H PRN #5 ml 07/29/21 [Rx Last Taken Unknown] doxycycline monohydrate 100 mg PO BID #20 cap 08/07/21 [Rx Last Taken Unknown] Allergy/AdvReac Type Severity Reaction Status Date / Time Fish Containing Products Allergy Other Verified 08/07/21 16:00 Social History Smoking Status: Current every day smoker tobacco type: cigarettes ROS ROS ED Constitutional Constitutional ED: Denies chills or fever(s) Eyes Eyes: Denies blurry vision ENT ENT ED: Denies rhinorrhea or sore throat Cardiovascular Cardiovascular: Reports chest pain Respiratory/Chest Respiratory/Chest: Denies cough or dyspnea Gastrointestinal Gastrointestinal: Denies abdominal pain Integumentary Denies abscess or rash Neurologic Neurologic: Denies headache(s) Allergic/Immunologic Allergic/Immunologic ED: Denies urticaria EXAM Physical Exam Const Vital Signs: 08/07/21 15:59 Temperature 98.3 F Temperature Source Temporal Pulse Rate 69 Respiratory Rate 14 Blood Pressure 156/70 H Blood Pressure Mean 98 Pulse Ox 100 Oxygen Delivery Method Room Air Positive well nourished and well developed General Appearance ED: well developed HEENT Reports moist mucous membranes Eyes PERRL and EOMs intact bilaterally Neck supple Chest Wall Chest Narrative: Firm 3 mm diameter lesion noted just beneath the right nipple. No overlying skin change. Resp normal respiratory effort and clear to auscultation bilaterally Cardio regular rate and regular rhythm GI normal to inspection, nondistended, normoactive bowel sounds and non-tender Palpation: soft Extremity normal to inspection Neuro oriented x3 Sensorium / Orientation: alert Psych mental status grossly normal MDM MDM Treatment and Re-Evaluation Comments:: Bedside ultrasound was performed. I do not see any evidence of abscess. My suspicion is this is a small blocked oil gland or sebaceous cyst. In order to ensure no infection I will cover him with a course of antibiotics. I recommended warm compresses to the area 2-3 times a day. If symptoms do not improve with this treatment, he is to follow-up with his primary care physician for a formal ultrasound. Discharge Plan Triage Chief Complaint: Chest Other ED Provider: Mariangel Ramachandran Dx/Rx/DC Orders Clinical Impression: Sebaceous cyst Instructions: ED Epidermoid Cyst, No Infection Prescriptions: New doxycycline monohydrate 100 MG capsule 100 mg PO BID Qty: 20 RF: 0 No Action erythromycin 5 mg/gram (0.5 %) ointment 1 applic RIGHT EYE Q6H 5 Days Qty: 3.5 RF: 0 ketorolac 0.5 % drops 2 drp RIGHT EYE Q8H PRN (Reason: pain) Qty: 5 RF: 0 Primary Care Provider: Susana Ho Referrals: Susana Ho MD [Primary Care Provider] - 10-14 Days if not better Disposition Disposition: Home, Self Care
[2021-08-07] MEDS: Doxycycline 100 MG CAPSULE PO (17:44)
== END 2021-08-07 17:46 | disposition home or self-care (01) ==
LOC: ED 17:40
PROVIDERS: Emergency Provider Emergency Medicine; PCP Family Medicine; Visit Provider Emergency Medicine
DX: L72.3 Sebaceous cyst (principal); F17.210 Nicotine dependence, cigarettes, uncomplicated
CPT/HCPCS: 99283

== ENCOUNTER 2021-09-18 16:18 | Outpatient (CLI) | payer BC, MEDICAID, SELFPAY ==
--- NOTE | 2021-09-18 16:23 | RAD_ITS ---
STUDY: X-RAY - RIGHT HAND, ATTENTION FIRST FINGER REASON FOR EXAM: Male, 21 years old. Pain. History of remote fall. Persistent pain at the base of the thumb. TECHNIQUE: 3 view(s) of the finger were obtained. COMPARISON: None. FINDINGS: Normal metacarpal head. Normal metacarpophalangeal joint. Normal proximal phalanx. Normal distal phalanx. Normal interphalangeal joint. The soft tissues appear grossly normal. RAD/Finger(s) Min 2 Views IMPRESSION: No fracture or dislocation. Electronically Signed: Primitivo Martinez DO at 23:53 EST ,
== END 2021-09-18 23:59 | disposition home or self-care (01) ==
PROVIDERS: PCP Family Medicine; Referring Provider Family Medicine; Visit Provider Family Medicine
DX: M79.644 Pain in right finger(s) (principal)
CPT/HCPCS: 73140

== ENCOUNTER 2024-01-20 22:40 | Emergency (ER) | payer MEDICAID, SELFPAY ==
[2024-01-20 22:41] VITALS: BP 132/87; PULSE 78; RESP 18; TEMP 36.3; O2SAT 98; BMI 21.9
--- NOTE | 2024-01-20 23:07 | EX.ED.DYSGE1 ---
HPI History of Present Illness Chief Complaint: Rash Informant: patient Onset/Context/Timing Onset: Weeks (2) Context: Gradual Onset Timing: Continuous Quality: Itching, burning, painful Location: Face, neck, arms, chest, abdomen, and ankles Worsened by: Itching, palpation Relieved by: Nothing Narrative Narrative: Patient presents with a rash that has been getting worse over the past 2 weeks. Patient states it is gradually gotten worse. Patient states he thinks he came in contact with something that he is allergic to while he was at work. Patient states it started over his frontal scalp area. Patient states that he scratched the area and it then spread to his face, arms, neck, chest, and abdomen. Patient states the rash is pruritic and painful. Patient describes it as burning. Patient states it is worse with itching and with palpation. Patient is nothing seems to help with it. Patient states he has used multiple [id number] creams without any improvement. [facility] Medical History Schizophrenia Bipolar 2 disorder Suicidal behavior Home Medications ?Medication ?Instructions ?Recorded ?Last Taken ?Type erythromycin 5 mg/gram (0.5 %) eye 1 applic RIGHT EYE Q6H 5 days #3.5 07/29/21 Unknown Rx ointment grams ketorolac 0.5 % eye drops 2 drp RIGHT EYE Q8H PRN pain #5 mL 07/29/21 Unknown Rx doxycycline monohydrate 100 mg 100 mg PO BID #20 caps 08/07/21 Unknown Rx capsule prednisone 20 mg tablet 60 mg (3 x 20 mg) PO DAILY #15 01/20/24 Unknown Rx TABLETS Allergy/AdvReac Type Severity Reaction Status Date / Time Fish Containing Products Allergy Other Verified 01/20/24 22:43 Surgical History no surgical history no surgical history Social History Smoking Status: Former smoker ROS ROS ED Constitutional Constitutional ED: Denies chills or fever(s) Eyes Eyes: Denies blurry vision or change in vision ENT ENT ED: Denies rhinorrhea or sore throat Cardiovascular Cardiovascular: Denies chest pain or palpitations Respiratory/Chest Respiratory/Chest: Denies cough or dyspnea Gastrointestinal Gastrointestinal: Denies nausea or vomiting Genitourinary Genitourinary ED: Denies dysuria or hematuria Musculoskeletal Musculoskeletal: Denies back pain or neck pain Integumentary Reports rash; Denies abscess Neurologic Neurologic: Denies headache(s) or weakness Allergic/Immunologic Allergic/Immunologic ED: Denies mouth swelling or urticaria EXAM Physical Exam Const Vital Signs: 01/20/24 22:41 Temperature 97.3 F L Temperature Source Temporal Pulse Rate 78 Respiratory Rate 18 Blood Pressure 132/87 H Blood Pressure Mean 102 Pulse Ox 98 Oxygen Delivery Method Room Air Positive well nourished and well developed General Appearance ED: well developed and NAD HEENT Reports moist mucous membranes Neck supple and no JVD Extremity normal to inspection General Extremety ED: Negative for edema General Extremity: Negative for edema Neuro oriented x3, CN's II-XII intact bilaterally and no sensory deficits noted Sensorium / Orientation: alert Motor Exam: strength 5/5 throughout Psych mental status grossly normal Skin Skin Narrative: There is a patchy erythematous macular rash over the face, neck, chest, abdomen, arms, and axilla. There are no vesicles or pustules noted. There are no petechia noted. There is no involvement of the mucous membranes. There is no sloughing of the skin. There is no involvement of the palms or soles. MDM MDM MDM Narrative Medical decision making narrative: Patient was advised that this is consistent with allergic dermatitis. Patient was given a dose of prednisone here. Patient was given a prescription for prednisone. Patient was instructed to use Benadryl, Claritin, or Zyrtec as needed for any itching. Patient was given a note for work. Patient was instructed to follow-up with his primary care physician in 3 to 5 days for further evaluation. Patient understood and was agreeable with the plan. All questions were answered. Discharge Plan Triage Chief Complaint: Rash ED Provider: Ronald Figueroa Dx/Rx/DC Orders Clinical Impression: Allergic dermatitis, Elevated blood pressure reading Instructions: ED Contact Dermatitis Prescriptions: New prednisone 20 mg tablet 60 mg PO DAILY Qty: 15 0RF No Action erythromycin 5 mg/gram (0.5 %) ointment 1 applic RIGHT EYE Q6H 5 Days Qty: 3.5 0RF ketorolac 0.5 % drops 2 drp RIGHT EYE Q8H PRN (Reason: pain) Qty: 5 0RF Rx Instructions: begin 24 hours prior to surgery doxycycline monohydrate 100 MG capsule 100 mg PO BID Qty: 20 0RF Stand Alone Forms: ED Work / School Excuse Primary Care Provider: Susana Ho Referrals: Susana Ho MD [Primary Care Provider] - 3-5 Days Print Language: Ukrainian Disposition Disposition: Home, Self Care
[2024-01-20] MEDS: predniSONE 20 MG Tablet 60 MG PO (23:50)
[2024-01-20 23:56] VITALS: BP 130/80; PULSE 70; RESP 18; TEMP 36.3; O2SAT 98
== END 2024-01-20 23:57 | disposition home or self-care (01) ==
PROVIDERS: Emergency Provider Emergency Medicine; PCP Family Medicine; Visit Provider Emergency Medicine
DX: L23.9 Allergic contact dermatitis, unspecified cause (principal); Z87.891 Personal history of nicotine dependence; R03.0 Elevated blood-pressure reading, without diagnosis of hypertension
CPT/HCPCS: 99282

== ENCOUNTER → 2024-03-23 | Outpatient (CLI) | payer MEDICAID, SELFPAY ==
[2024-03-23 10:43] LABS: Absolute Lymphocyte Count 2.97 X10^3/uL (0.83-4.51); Absolute Neutrophil Count 1.1 X10^3/uL (2.0-7.7); Basophil# 0.02 X10^3/uL; Basophil% 0.4 % (0-1); Eosinophil# 0.11 X10^3/uL; Eosinophils% 2.4 % (0-5); Hematocrit 42.4 % (40-54); Hemoglobin 13.6 g/dL (13.0-16.5); Lymphocyte # 2.97 X10^3/ul (0.83-4.51); Lymphocyte % 64.4 % (19-41); Mean Corp Hgb Conc 32.1 g/dL (32-36); Mean Corpuscular Hgb 28.2 pg (27.0-32.0); Mean Corpuscular Volume 87.8 fL (80-94); Mean Platelet Vol. 9.1 fl (6.2-12.0); Monocyte# 0.39 X10^3/uL; Monocyte% 8.5 % (0-10); NRBC Flagged by Analyzer 0 % (0-5); Neutrophil # 1.11 X10^3/uL (2.7-7.7); Neutrophil % 24.1 % (47-70); Platelet Count 215 K/mm3 (150-450); RBC Distribution Width CV 12.3 % (11.6-14.6); RBC Distribution Width SD 40.1 fl (35.1-43.9); Red Blood Count 4.83 M/mm3 (4.6-6.2); White Blood Count 4.6 K/mm3 (4.4-11.0)
[2024-03-23 11:21] LABS: Vitamin D,25 Hydroxy 35.6 ng/mL
[2024-03-23 11:27] LABS: ALB/GLOB Ratio 1.1 RATIO (0.9-2.4); AST(SGOT) 182 U/L (15-37); Alanine Aminotransfer ALT/SGPT 87 U/L (16-61); Alkaline Phosphatase 105 U/L (45-117); Anion Gap 7 (5-15); BUN 11 mg/dL (7-18); BUN/Creat Ratio 10.9 RATIO (10-20); Calcium,Total 9.2 mg/dL (8.5-10.1); Chloride 104 mmol/L (98-107); Cholesterol 136 mg/dL (200); Creatinine, Serum 1.01 mg/dL (0.70-1.30); EST Glomerular Filtration Rate 97 mL/min (>60); Est Glom Filt Rate - Afr Amer 117 mL/min (>60); Globulin 3.6 g/dL (2.2-4.2); Glucose 93 mg/dL (74-106); High Density Lipoprotein 88 mg/dL; Potassium 3.4 mmol/L (3.5-5.1); Protein, Total 7.6 g/dL (6.4-8.2); Sodium Level 140 mmol/L (136-145); Triglycerides 60 mg/dL; Very Low Density Lipoprotein 12 mg/dL (5-40)
[2024-03-23 11:36] LABS: Hemoglobin A1c 4.5 % (3.8-5.6)
== END | disposition home or self-care (01) ==
LOC: PAVLAB 10:17
PROVIDERS: PCP Family Medicine; Referring Provider Registered Nurse; Visit Provider Registered Nurse
DX: Z79.899 Other long term (current) drug therapy (principal)
CPT/HCPCS: 36415; 80053; 80061; 82306; 83036; 84443; 85025

== ENCOUNTER 2024-08-11 20:55 | Emergency (ER) | payer MEDICAID, SELFPAY ==
[2024-08-11 20:56] VITALS: BP 140/112; PULSE 115; RESP 20; TEMP 36.4; O2SAT 99; BMI 22.6
[2024-08-11 21:55] VITALS: BP 108/78; PULSE 70
[2024-08-11 22:07] LABS: Absolute Lymphocyte Count 4.86 X10^3/uL (0.83-4.51); Absolute Neutrophil Count 2.9 X10^3/uL (2.0-7.7); Basophil# 0.03 X10^3/uL; Basophil% 0.4 % (0-1); Eosinophil# 0.07 X10^3/uL; Eosinophils% 0.8 % (0-5); Hematocrit 43.5 % (40-54); Hemoglobin 14.5 g/dL (13.0-16.5); Lymphocyte # 4.86 X10^3/ul (0.83-4.51); Lymphocyte % 58.1 % (19-41); Mean Corp Hgb Conc 33.3 g/dL (32-36); Mean Corpuscular Hgb 28.5 pg (27.0-32.0); Mean Corpuscular Volume 85.6 fL (80-94); Mean Platelet Vol. 9.1 fl (6.2-12.0); Monocyte# 0.52 X10^3/uL; Monocyte% 6.2 % (0-10); NRBC Flagged by Analyzer 0 % (0-5); Neutrophil # 2.88 X10^3/uL (2.7-7.7); Neutrophil % 34.4 % (47-70); Platelet Count 263 K/mm3 (150-450); RBC Distribution Width CV 12.4 % (11.6-14.6); RBC Distribution Width SD 38.8 fl (35.1-43.9); Red Blood Count 5.08 M/mm3 (4.6-6.2); White Blood Count 8.4 K/mm3 (4.4-11.0)
[2024-08-11 22:18] LABS: Amphetamine Urine NEGATIVE (<1000 ng/mL); Barbiturate Urine VISTA NEGATIVE (< 200 ng/mL); Benzodiazepine Urine VISTA NEGATIVE (< 200 ng/mL); Cocaine Urine VISTA NEGATIVE (< 300 ng/mL); Ecstacy Urine VISTA NEGATIVE (< 500 ng/mL); Methadone Urine VISTA NEGATIVE (< 300 ng/mL); PCP Urine VISTA NEGATIVE (< 25 ng/mL); THC Urine VISTA POSITIVE (< 50 ng/mL); Vista UDS pH Range 5
[2024-08-11 22:25] LABS: Anion Gap 5 (5-15); BUN 10 mg/dL (7-18); BUN/Creat Ratio 8.2 RATIO (10-20); Calcium,Total 9.4 mg/dL (8.5-10.1); Chloride 108 mmol/L (98-107); Creatinine, Serum 1.22 mg/dL (0.70-1.30); EST Glomerular Filtration Rate 78 mL/min (>60); Est Glom Filt Rate - Afr Amer 94 mL/min (>60); Estimated Creatinine Clearance 94.29 ml/min; Glucose 89 mg/dL (74-106); Potassium 3.4 mmol/L (3.5-5.1); Sodium Level 140 mmol/L (136-145)
[2024-08-11] MEDS: hydrOXYzine PAM 25 MG Capsule 50 MG PO (22:33)
[2024-08-11] MEDS: Haloperidol 5 MG Tablet PO (23:14)
--- NOTE | 2024-08-11 23:59 | EDS_ITS ---
HPI History of Present Illness Chief Complaint: Suicidal Informant: patient and family Narrative Narrative: Patient is a 24-year-old male with past medical history of schizophrenia and bipolar disorder. He states that he has struggled with depression and thoughts of suicide for multiple years. He reports that he will typically cut himself and attempt to relieve stress and calm himself down. He denies any recent stressor but states that he feels that he does not have any reason to live and is thinking of hurting himself. He does admit to previous admission secondary to suicidal thoughts roughly 3 to 4 years ago. Patient denies any ingestion at this time in order to attempt harming himself. He denies any true plan at this time but states that he would just go buy a gun and use that as an means to perform self-harm. Therefore with his worsening depression and thoughts of suicidal ideation he was brought in for evaluation [facility] Medical History Schizophrenia Bipolar 2 disorder Suicidal behavior Home Medications ?Medication ?Instructions ?Recorded ?Last Taken ?Type olanzapine 20 mg tablet 20 mg PO QHS 01/20/24 Unknown History ondansetron HCl 4 mg tablet 4 mg PO Q8H PRN nausea and 06/23/24 Unknown Rx vomiting #7 tabs Allergy/AdvReac Type Severity Reaction Status Date / Time Fish Containing Products Allergy Other Verified 08/11/24 20:56 Social History (Updated 08/11/24 @ 21:55 by Celestina Brown) household members: family housing: apartment Smoking Status: Former smoker ROS ROS ED Constitutional Constitutional ED: Denies chills or fever(s) ENT ENT ED: Denies sore throat Cardiovascular Cardiovascular: Denies chest pain Respiratory/Chest Respiratory/Chest: Denies cough or dyspnea Gastrointestinal Gastrointestinal: Denies abdominal pain, diarrhea, nausea or vomiting Genitourinary Genitourinary ED: Denies dysuria Musculoskeletal Musculoskeletal: Denies myalgias Integumentary Denies rash Neurologic Neurologic: Denies headache(s) Psychiatric Psychiatric: Reports anxiety, depression, suicidal ideation and suicidal thoughts Hematologic/Lymphatic Hematologic/Lymphatic: Denies easy bleeding or easy bruising EXAM Physical Exam Const Vital Signs: 08/11/24 20:56 08/11/24 21:55 Temperature 97.5 F L Temperature Source Temporal Pulse Rate 115 H 70 Respiratory Rate 20 H Blood Pressure 140/112 H 108/78 Blood Pressure Mean 121 88 Pulse Ox 99 Oxygen Delivery Method Room Air Positive well nourished and well developed General Appearance ED: well developed; Negative for pallor HEENT HEENT Narrative: Normocephalic atraumatic Eyes PERRL and EOMs intact bilaterally General Eye ED: Negative for scleral icterus Neck supple Neck Narrative: No nuchal rigidity or meningeal signs Chest Wall palpation of chest normal Resp normal respiratory effort and clear to auscultation bilaterally Cardio regular rate and regular rhythm GI normal to inspection, nondistended, normoactive bowel sounds, non-tender, non- distended and no masses Auscultation: normoactive bowel sounds Palpation: soft Extremity normal to inspection Neuro oriented x3, CN's II-XII intact bilaterally and no sensory deficits noted Sensorium / Orientation: alert Motor Exam: strength 5/5 throughout Psych Psych Narrative: Patient has depressed/tearful affect with suicidal ideation Mood & Affect: depressed and tearful Skin no rashes or lesions noted General Skin Exam: Negative for jaundice or pallor MDM MDM MDM Narrative Medical decision making narrative: Patient initially arrived to ER hypertensive and tachycardic but was anxious/nervous and after he settled down his vitals stabilized. He reported worsening depression with suicidal ideation and reported that he would buy a gun and shoot himself. He is also high risk for attempting self-harm as he has cut in the past and has required psychiatric hospitalization. Secondary to this a medical screening exam was performed. It was positive for alcohol which she admitted to drinking but was under 100 and therefore he is medically sober and was medically cleared. The patient was evaluated by crisis center and based on his worsening symptoms and high risk for self-harm they do agree that he should be placed in a psychiatric hospital for further care At this time the patient is hemodynamically stable his medical screening exam is negative and therefore he is medically cleared for transfer/placement to a psychiatric hospital History & Record Review Discussion w/independent historian: Patient and Family Lab Data Attestation: I reviewed the patient's lab results. Labs: Laboratory Results - last 24 hr 08/11/24 08/11/24 21:30 21:55 WBC 8.4 RBC 5.08 Hgb 14.5 Hct 43.5 MCV 85.6 MCH 28.5 MCHC 33.3 RDW Std Deviation 38.8 RDW Coeff of Elijah 12.4 Plt Count 263 MPV 9.1 Immature Gran % (Auto) 0.100 Neut % (Auto) 34.4 L Lymph % (Auto) 58.1 H [place] % (Auto) 6.2 Eos % (Auto) 0.8 Baso % (Auto) 0.4 Absolute Neuts (auto) 2.9 Absolute Lymphs (auto) 4.86 H Nucleated RBC % 0 Sodium 140 Potassium 3.4 L Chloride 108 H Carbon Dioxide 28.0 Anion Gap 5 BUN 10 Creatinine 1.22 Estim Creat Clear Calc 94.29 Est GFR (MDRD) Af Amer 94 Est GFR (MDRD) Non-Af 78 BUN/Creatinine Ratio 8.2 L Glucose 89 Calcium 9.4 Urine Opiates Screen NEGATIVE Urine Methadone Screen NEGATIVE Ur Barbiturates Screen NEGATIVE Ur Phencyclidine Scrn NEGATIVE Ur Amphetamines Screen NEGATIVE MDMA (Ecstasy) Screen NEGATIVE U Benzodiazepines Scrn NEGATIVE Urine Cocaine Screen NEGATIVE U Cannabinoids Screen POSITIVE H Ur Drug Screen Comment Ethyl Alcohol 98.0 Management Discussion w/another healthcare provider: Behavioral health Discharge Plan Triage Chief Complaint: Suicidal ED Provider: Everton Rojas Dx/Rx/DC Orders Clinical Impression: Depression with suicidal ideation, Schizophrenia, Bipolar disorder Prescriptions: No Action ondansetron HCl 4 mg tablet 4 mg PO Q8H PRN (Reason: nausea and vomiting) Qty: 7 0RF olanzapine 20 mg tablet 20 mg PO QHS Primary Care Provider: Susana Ho Referrals: Susana Ho MD [Primary Care Provider] - Print Language: [place] Disposition Disposition: Psychiatric Hospital or Unit
--- NOTE | 2024-08-12 05:29 | ED.RN ---
Upon assuming care of this patient, this RN realized that the patient's home medications were not ordered. This RN completed the patient's home medication list, however, the patient missed his night time home medications.
[2024-08-12 06:00] VITALS: BP 112/82; PULSE 61; RESP 16; TEMP 36.8; O2SAT 100
[2024-08-12 06:16] VITALS: BP 112/82; PULSE 61; RESP 16; TEMP 36.8; O2SAT 100
== END 2024-08-12 07:01 ==
PROVIDERS: Emergency Provider Emergency Medicine; PCP Family Medicine; Visit Provider Emergency Medicine
DX: F31.9 Bipolar disorder, unspecified (principal); F20.9 Schizophrenia, unspecified; Z87.891 Personal history of nicotine dependence; R45.851 Suicidal ideations; Z79.899 Other long term (current) drug therapy
CPT/HCPCS: 36415; 80048; 80307; 82077; 85025; 99285

== ENCOUNTER 2024-09-08 23:23 | Emergency (ER) | payer MEDICAID, SELFPAY ==
[2024-09-08 23:24] VITALS: BP 141/95; PULSE 89; RESP 16; TEMP 36.7; O2SAT 100; BMI 22.2
--- NOTE | 2024-09-09 00:30 | ED.VIS.GI ---
HPI HPI - GI History of Present Illness Chief Complaint: Nausea/Vomiting/Diarrhea Informant: patient Abdominal Pain/Flank Pain Onset: Hours (3-4) Context: Sudden Onset Timing: Intermittent Quality: Stabbing Location: LUQ and LLQ Worsened by: Nothing Relieved by: - (Laying on right side) Nausea/Vomiting/Emesis GI Symptom: Positive for Nausea and Vomiting Onset: Today Quality: Positive for Nonbilious; Negative for Blood streaks, Coffee ground or Hematemesis Diarrhea/Melena/Hematochezia GI Symptom: Positive for Diarrhea; Negative for Melena or Hematochezia Onset: Today Associated Symptoms Associated Symptoms: Negative for Dysuria, Frequency or Hematuria Narrative Narrative: Patient presents with abdominal pain, nausea, vomiting, and diarrhea that began approximately 3 hours prior to arrival. Patient states he has been unable to keep anything down. Patient states his emesis is stomach contents. Patient denies any hematemesis or coffee-ground emesis. Patient denies any melena or hematochezia. The patient describes his pain as stabbing. Patient states this pain is mainly on the left side of his abdomen. Patient states it is better when he lays on his right side. Patient admits to some subjective fevers and chills. Patient states the pain radiates up into his chest. Patient denies any urinary complaints. [facility] Medical History Schizophrenia Bipolar 2 disorder Suicidal behavior Home Medications ?Medication ?Instructions ?Recorded ?Last Taken ?Type olanzapine 20 mg tablet 20 mg PO QHS 01/20/24 Unknown History carbamazepine 200 mg tablet 200 mg PO QHS 08/12/24 Unknown History hydroxyzine HCl 25 mg tablet 25 mg PO Q4H PRN 08/12/24 Unknown History ondansetron 4 mg disintegrating 4 mg PO Q8H PRN PRN Nausea #10 tabs 09/09/24 Unknown Rx tablet Allergy/AdvReac Type Severity Reaction Status Date / Time Fish Containing Products Allergy Other Verified 09/08/24 23:24 Surgical History no surgical history no surgical history Social History household members: family housing: apartment Smoking Status: Former smoker ROS ROS ED Constitutional Constitutional ED: Reports chills, fever(s) and subjective Eyes Eyes: Denies blurry vision or change in vision ENT ENT ED: Denies rhinorrhea or sore throat Cardiovascular Cardiovascular: Reports chest pain; Denies palpitations Respiratory/Chest Respiratory/Chest: Denies cough or dyspnea Gastrointestinal Gastrointestinal: Reports abdominal pain, diarrhea, nausea and vomiting; Denies melena Genitourinary Genitourinary ED: Denies dysuria or hematuria Musculoskeletal Musculoskeletal: Denies back pain or neck pain Integumentary Denies abscess or rash Neurologic Neurologic: Denies headache(s) or weakness Allergic/Immunologic Allergic/Immunologic ED: Denies mouth swelling or urticaria EXAM Physical Exam Const Vital Signs: 09/08/24 23:24 09/09/24 01:24 Temperature 98.1 F Temperature Source Oral Pulse Rate 89 68 Respiratory Rate 16 15 Blood Pressure 141/95 H 143/98 H Blood Pressure Mean 110 113 Pulse Ox 100 99 Oxygen Delivery Method Room Air Room Air Positive well nourished and well developed General Appearance ED: well developed and NAD HEENT Reports moist mucous membranes Neck supple and no JVD Resp normal respiratory effort and clear to auscultation bilaterally Cardio regular rate and regular rhythm GI Palpation: soft and tender epigastric, LLQ and LUQ; Negative for guarding or rebound tenderness present Neuro CN's II-XII intact bilaterally, moves all extremities and no sensory deficits noted Sensorium / Orientation: alert Motor Exam: strength 5/5 throughout Psych mental status grossly normal MDM MDM MDM Narrative Medical decision making narrative: Differential diagnosis includes gastroenteritis, bowel obstruction, perforation, pancreatitis, pyelonephritis, ureteral calculus, dehydration, and electrolyte abnormality. CT scan of the abdomen and pelvis will be obtained to assess for bowel obstruction, ureteral calculus, and pyelonephritis. CBC will be obtained to assess for leukocytosis and anemia. Comprehensive metabolic profile will be obtained to assess for hepatic function, renal function, and electrolyte abnormality. Lipase will be obtained to assess for pancreatitis. Urinalysis will be obtained to assess for urinary tract infection and hematuria. Lab Data Attestation: I reviewed the patient's lab results. Lab results narrative: CBC was reviewed and was within normal limits. Comprehensive metabolic profile was reviewed. Potassium was slightly low at 3.2. The remainder is within normal limits. Lipase was reviewed and was normal at 22. Urinalysis was reviewed. There is no evidence of urinary tract infection or hematuria. Labs: Laboratory Results - last 24 hr 09/09/24 09/09/24 00:35 02:17 WBC 9.0 RBC 5.38 Hgb 15.4 Hct 46.0 MCV 85.5 MCH 28.6 MCHC 33.5 RDW Std Deviation 37.6 RDW Coeff of Elijah 12.1 Plt Count 229 MPV 9.3 Immature Gran % (Auto) 0.300 Neut % (Auto) 82.1 H Lymph % (Auto) 11.8 L [place] % (Auto) 4.7 Eos % (Auto) 0.9 Baso % (Auto) 0.2 Absolute Neuts (auto) 7.3 Absolute Lymphs (auto) 1.06 Nucleated RBC % 0 Sodium 140 Potassium 3.2 L Chloride Direct 102 Carbon Dioxide 22.4 Anion Gap 15 BUN 12 Creatinine 1.0 Estim Creat Clear Calc 113.27 Est GFR (MDRD) Non-Af 108 BUN/Creatinine Ratio 11.9 Glucose 110 H Calcium 9.6 Total Bilirubin 0.83 AST 29 ALT 47 Alkaline Phosphatase 123 Total Protein 8.0 Albumin 4.9 Globulin 3.2 Albumin/Globulin Ratio 1.5 Lipase 22 Urine Color Yellow Urine Clarity Clear Urine pH 6.0 Ur Specific [place] 1.020 Urine Protein 30 H Urine Glucose (UA) Normal Urine Ketones 50 H Urine Occult Blood Negative Urine Nitrite Negative Urine Bilirubin 1 H Urine Urobilinogen Normal Ur Leukocyte Esterase Negative Urine RBC 0 SEEN Urine WBC 0 SEEN Ur Squamous Epith Cells 0 SEEN Urine Bacteria 0 SEEN Urine Mucus RARE Radiography Diagnostic Testing: Clinical Impression(s) from Imaging Studies Abdomen/Pelvis CT 09/09/24 00:54 IMPRESSION: Fluid containing small bowel loops in the mid to lower abdomen with scattered air-fluid levels may represent enteritis or mild ileus, nonspecific. No evidence of bowel wall thickening identified on noncontrast imaging. No bowel dilation, free air or free fluid identified.. Punctate tiny nonobstructing left intrarenal stone suggested lower pole axial 67 and sagittal 93. No hydronephrosis or perinephric stranding. No ureteral or bladder stone identified. One or more dose reduction techniques were used (e.g., Automated exposure control, adjustment of the mA and/or kV according to patient size, use of iterative reconstruction technique). Reading Location: [facility] CT scan of the abdomen and pelvis was obtained. There are fluid containing loops of small bowel in the mid to lower abdomen representing enteritis or mild ileus. There is no evidence of bowel obstruction or perforation. There is no free air or free fluid noted. This was interpreted by the radiologist and was also independently reviewed by myself. Treatment and Re-Evaluation :: Nicotine cessation was discussed. Patient was given IV fluids, morphine, and Zofran. Patient was feeling better on reevaluation. Patient was advised of his findings. Patient was given a prescription for Zofran. Patient was instructed to start with a liquid diet and advance as tolerated. Patient was instructed to follow-up with his primary care physician in 5 to 7 days. Patient understood and was agreeable with plan. All questions were answered. Discharge Plan Triage Chief Complaint: Nausea/Vomiting/Diarrhea ED Provider: Ronald Figueroa Dx/Rx/DC Orders Clinical Impression: Nausea vomiting and diarrhea, Nicotine vapor product user Instructions: ED Gastroenteritis, Viral (Adult), ED Vomiting (Adult) Prescriptions: New ondansetron 4 mg tablet,disintegrating 4 mg PO Q8H PRN PRN (Reason: Nausea) Qty: 10 0RF No Action olanzapine 20 mg tablet 20 mg PO QHS carbamazepine 200 mg tablet 200 mg PO QHS Patient Comments: [NO ORIGINAL SIG] hydroxyzine HCl 25 mg tablet 25 mg PO Q4H PRN Primary Care Provider: Susana Ho Referrals: Susana Ho MD [Primary Care Provider] - 5-7 Days Print Language: [place]ian Disposition Disposition: Home, Self Care
--- NOTE | 2024-09-09 00:54 | CT_ITS ---
PROCEDURE: ABDOMEN/PELVIS WITHOUT CONT REASON FOR EXAM: Left flank pain, nausea vomiting diarrhea, fever TECHNIQUE: Abdomen and pelvis CT without intravenous contrast. Coronal and sagittal reformatted images COMPARISON: 08/05/2020 FINDINGS: Noncontrast technique limits evaluation of the abdominal and pelvic viscera. Lung bases: Clear Liver: Unremarkable. Gallbladder: Unremarkable. Spleen: Unremarkable. Pancreas: Unremarkable. Adrenals: Unremarkable. Kidneys: Punctate tiny nonobstructing left intrarenal stone suggested lower pole axial 67 and sagittal 93. No hydronephrosis or perinephric stranding. No ureteral or bladder stone identified. Small right and left renal cyst again noted.. Bladder: Collapsed. Reproductive Organs: Unremarkable. Bowel: Fluid containing small bowel loops in the mid to lower abdomen with scattered air-fluid levels may represent enteritis or mild ileus, nonspecific. No evidence of bowel wall thickening identified on noncontrast imaging. No bowel dilation, free air or free fluid identified.. Appendix: Not identified. Lymph nodes: No suspicious lymph node enlargement. Vasculature: Major vascular structures are unremarkable. Peritoneum / Retroperitoneum: No ascites. No free air. Small focus of fluid at the left inguinal subcutaneous soft tissues axial 160 and coronal 24 not significantly changed may represent sequela of previous herniorrhaphy, clinically correlate Bones: Unremarkable. CT/Abdomen/Pelvis without Cont IMPRESSION: Fluid containing small bowel loops in the mid to lower abdomen with scattered a ir-fluid levels may represent enteritis or mild ileus, nonspecific. No evidence of bowel wall thickening identified on noncontr ast imaging. No bowel dilation, free air or free fluid identified.. Punctate tiny nonobstructing left intrarenal stone suggested lower pole axial 6 7 and sagittal 93. No hydronephrosis or perinephric stranding. No ureteral or bladder stone identified. One or more dose reduction techniques were used (e.g., Automated exposure contr ol, adjustment of the mA and/or kV according to patient size, use of iterative reconstruction technique). Reading Location: [id number]
[2024-09-09 01:06] LABS: Absolute Lymphocyte Count 1.06 X10^3/uL (0.83-4.51); Absolute Neutrophil Count 7.3 X10^3/uL (2.0-7.7); Basophil# 0.02 X10^3/uL; Basophil% 0.2 % (0-1); Eosinophil# 0.08 X10^3/uL; Eosinophils% 0.9 % (0-5); Hemoglobin 15.4 g/dL (13.0-16.5); Lymphocyte # 1.06 X10^3/ul (0.83-4.51); Lymphocyte % 11.8 % (19-41); Mean Corp Hgb Conc 33.5 g/dL (32-36); Mean Corpuscular Hgb 28.6 pg (27.0-32.0); Mean Corpuscular Volume 85.5 fL (80-94); Mean Platelet Vol. 9.3 fl (6.2-12.0); Monocyte# 0.42 X10^3/uL; Monocyte% 4.7 % (0-10); NRBC Flagged by Analyzer 0 % (0-5); Neutrophil # 7.34 X10^3/uL (2.7-7.7); Neutrophil % 82.1 % (47-70); Platelet Count 229 K/mm3 (150-450); RBC Distribution Width CV 12.1 % (11.6-14.6); RBC Distribution Width SD 37.6 fl (35.1-43.9); Red Blood Count 5.38 M/mm3 (4.6-6.2)
[2024-09-09] MEDS: Morphine 4 MG/ML Syringe IV (01:10)
[2024-09-09] MEDS: 0.9% Normal Saline (1000mL) 1,000 ML 1000 ML IV (01:10)
[2024-09-09] MEDS: Ondansetron 4 MG/2 ML Vial IV (01:10)
--- NOTE | 2024-09-09 01:14 | ED.RN ---
Patient prompted for urine sample
[2024-09-09 01:24] VITALS: BP 143/98; PULSE 68; RESP 15; O2SAT 99
[2024-09-09 01:26] LABS: ALB/GLOB Ratio 1.5 RATIO (0.9-2.4); AST(SGOT) 29 U/L (<=37); Alanine Aminotransfer ALT/SGPT 47 U/L (<=46); Albumin, Serum 4.9 g/dL (3.5-5.0); Alkaline Phosphatase 123 U/L (40-129); Anion Gap 15 (5-15); BUN 12 mg/dL (4-19); BUN/Creat Ratio 11.9 RATIO (10-20); Calcium 9.6 mg/dL (7.6-11.0); Carbon Dioxide 22.4 mmol/L (22.0-29.0); Chloride 102 mmol/L (96-108); EST Glomerular Filtration Rate 108 (>60); Estimated Creatinine Clearance 113.27 ml/min; Globulin 3.2 g/dL (2.2-4.2); Glucose 110 mg/dL (70-99); Lipase 22 U/L (13-75); Potassium 3.2 mmol/L (3.3-5.1); Sodium Level 140 mmol/L (133-145); Total Bilirubin 0.83 mg/dL (0.00-1.30)
[2024-09-09 02:22] LABS: Bacteria 0 SEEN /hpf (None Seen); Squamous Epithelial Cells - UA 0 SEEN /hpf (0-5); White Blood Cells 0 SEEN /hpf (0-5)
[2024-09-09 02:23] LABS: Color, Urine Yellow (Yellow); Glucose, Dipstick Normal (Normal); Ketone-Dipstick 50 mg/dl (Negative); Leukocyte Esterase-Dipstick Negative /ul (Negative); Nitrite-Dipstick Negative (Negative); Occult Blood-Urine Negative /ul (Negative); Protein-Dipstick 30 mg/dl (Negative); Urine Clarity Clear (Clear); Urine Urobilinogen Normal (Normal)
[2024-09-09 02:51] LABS: Mucous, Urine RARE /hpf (<or=2+); Red Blood Cells-Urine 0 SEEN /hpf (0-5); Urine Bilirubin Dipstick 1 mg/dL (Negative)
[2024-09-09 03:00] VITALS: BP 133/97; PULSE 66; RESP 16; O2SAT 100
[2024-09-09 03:06] VITALS: BP 133/97; PULSE 68; RESP 15; TEMP 36.4; O2SAT 100
== END 2024-09-09 03:11 | disposition home or self-care (01) ==
PROVIDERS: Emergency Provider Emergency Medicine; PCP Family Medicine; Visit Provider Emergency Medicine
DX: R11.2 Nausea with vomiting, unspecified (principal); F20.9 Schizophrenia, unspecified; F31.81 Bipolar II disorder; R19.7 Diarrhea, unspecified; Z79.899 Other long term (current) drug therapy; F17.290 Nicotine dependence, other tobacco product, uncomplicated
CPT/HCPCS: 74176; 80053; 81001; 83690; 85025; 96361; 96374; 96375; 99283; J2405